=== PATIENT | female | born 1990 | race Caucasian/White ===

== ENCOUNTER 2023-06-14 17:18 | Emergency (ER) | payer MEDICAID, SELFPAY ==
[2023-06-14 17:22] VITALS: BP 118/79; PULSE 96; RESP 12; TEMP 36.8; O2SAT 99; BMI 22.6
--- NOTE | 2023-06-14 17:25 | W.ED.URI ---
HPI - URI/Sore Throat General: Chief Complaint: General Medical Stated Complaint: rigth side facial pains Time Seen by Provider: 06/14/23 17:23 History of Present Illness: 32-year-old female comes in today with right side jaw pain. Patient appears nontoxic. Patient does have very poor dentition and reports pain starting approximately 2 days ago. Patient has been told by her dentist that she needs to have her teeth removed. Patient denies any other complaints. Review of Systems ENMT: Reports: mouth pain and dental pain Physical Exam Const: COMMON NORMALS: alert HENMT: COMMON NORMALS: normocephalic HEAD & SCALP: normocephalic TEETH & GINGIVA: Yes poor dentition Neck/C-Spine: COMMON NORMALS: full ROM Resp: COMMON NORMALS: normal respiratory effort Cardio: COMMON NORMALS: regular rate RATE: regular rate GI: COMMON NORMALS: non-tender Back/Pelvis: COMMON NORMALS: thoracic and lumbar spine normal to inspection Extremity: COMMON NORMALS: full ROM Neuro: SENSORIUM/ORIENTATION: Yes alert Skin: COMMON NORMALS: turgor normal GENERAL SKIN EXAM: turgor normal Course Vital Signs: Vital signs: Vital Signs Temperature 98.2 F 06/14/23 17:22 Pulse Rate 96 06/14/23 17:22 Respiratory Rate 12 06/14/23 17:22 Blood Pressure 118/79 06/14/23 17:22 Pulse Oximetry 99 06/14/23 17:22 Oxygen Delivery Me thod Room Air 06/14/23 17:22 MDM - URI/Sore Throat Medical Decision Making 32-year-old female comes in with jaw pain. On exam patient has poor dentition with multiple caries and teeth. No significant swelling or redness is noted to the face. Posterior pharynx is normal. Vital signs are normal. Differential diagnosis includes not limited to dental pain, dental abscess, dental caries, TMJ syndrome, trigeminal neuralgia. No signs of severe illness or injury is noted. Due to patient's poor dentition suspect a early dental infection. Patient will be placed on Augmentin and recommended use acetaminophen and ibuprofen for pain and hydrocodone for severe pain. Patient reported understanding and agreed to plan. No radiology studies performed this visit Discharge Plan Discharge Patient Disposition: Home Clinical Impression: Pain, dental Condition: Stable Prescriptions: New amoxicillin-pot clavulanate 875-125 mg tablet 1 tab PO BID Qty: 14 0RF hydrocodone-acetaminophen 5-325 mg tablet 1 tab PO Q8H PRN (Reason: pain (scale score 7-10)) Qty: 6 0RF Discharge Orders: Discharge ED (Routine); Ordered 06/14/23 Ordered By: Kimani Ross Discharge Diet: Usual diet Discharge Activity: Increase activity as tolerated Patient Instructions: Toothache (ED) Activity Restrictions/Additional Instructions: Take antibiotics as directed. Drink plenty of water and fluids. Follow-up with dentist for further evaluation. Return to ED for new concerns or worsening symptoms. Coding Level of Care Code ED Tip Length Checker for Iban Munoz
[2023-06-14] MEDS: dexamethasone 4 mg Tablet 10 MG PO (17:52)
[2023-06-14] MEDS: HYDROcodone-acetaminophen 5-325 mg Tablet 1 TAB PO (17:52)
[2023-06-14] MEDS: amoxicillin-clav 875-125 mg Tablet 1 TAB PO (17:52)
[2023-06-14 17:55] VITALS: BP 118/79; PULSE 96; RESP 12; TEMP 36.8; O2SAT 99
== END 2023-06-14 17:56 | disposition home or self-care (01) ==
PROVIDERS: Emergency Provider Nurse Practitioner Family
DX: K08.89 Other specified disorders of teeth and supporting structures (principal)
CPT/HCPCS: 99283; J8540

== ENCOUNTER → 2023-08-27 10:46 | Outpatient (BNVA) | payer MEDICAID, SELFPAY | PROVIDERS: Visit Provider Nurse Practitioner Family | DX: J06.9 Acute upper respiratory infection, unspecified (principal) | CPT/HCPCS: 80053; 85025 ==

== ENCOUNTER 2023-10-27 20:46 | Emergency (ER) | payer MEDICAID, SELFPAY ==
[2023-10-27 20:50] VITALS: BP 101/67; PULSE 89; RESP 16; TEMP 36.7; O2SAT 98; BMI 23.8
[2023-10-27 21:19] LABS: Charge for UA Resulting for Rev
[2023-10-27 21:34] LABS: Bilirubin Urine Negative (Negative); Blood Urine Negative (Negative); Glucose Urine UA Negative (Normal); Ketones Urine Negative (Negative); Leukocyte Esterase Urine Negative (Negative); Nitrate Urine Negative (Negative); Protein Urine Negative (Negative); Specific Gravity, Urine 1.021 (1.005-1.030); Urine Appearance Clear (CLEAR); Urine Color Yellow (Yellow); pH Urine 5.5 (5-7)
[2023-10-27 21:36] LABS: HCG Qualitative Urine. Negative (Negative)
[2023-10-27 21:39] LABS: Basophils % 0.3 %; Eosinophils # 0.1 10^3/uL (0.0-0.8); Eosinophils % 1.2 %; Hematocrit 39.3 % (36-47); Lymphocytes # 2.9 10^3/uL (0.8-4.8); Mean Corpuscular HGB Conc 33.8 g/dL (30-55); Mean Corpuscular Volume 94.7 fl (85-98); Mean Platelet Volume 10.4 fL (7.4-10.4); Monocytes # 0.7 10^3/uL (0.2-0.9); Monocytes % 6.9 %; Neutrophils # 6.31 10^3/uL (1.8-7.7); Neutrophils % 62.2 %; Nucleated Red Blood Cells % 0 %; Platelet Count 294 10^3/cmm (157-399); Red Blood Count 4.15 10^6/uL (3.85-5.65); Red Cell Distribution Width 12.3 % (12.1-15.1); White Blood Count 10.14 10^3/uL (3.29-11.43)
--- NOTE | 2023-10-27 21:41 | USR_ITS ---
PROCEDURE INFORMATION: Exam: US Pelvis, Complete, Non-Obstetric Exam date and time: 10/27/2023 9:48 PM Age: 33 years old Clinical indication: Pelvic pain; Patient HX: Poly menorrhea, last two menstrual cycles. ; Additional info: Heavy, irregular bleeding, hcg neg TECHNIQUE: Imaging protocol: Transabdominal pelvic nonobstetric ultrasound. Complete exam. Real time ultrasound with image documentation. COMPARISON: No relevant prior studies available. FINDINGS: Uterus: Uterus is normal. Endometrial stripe is normal. Retroflexed. Right ovary/adnexa: Ovary is normal. No mass. Normal blood flow. Left ovary/adnexa: Ovary is normal. No mass. Normal blood flow. Intraperitoneal space: Small amount of fluid adjacent to the right ovary and within the cul-de-sac. Urinary bladder: Not attempted. US/US pelv w/transvag [id number] IMPRESSION: No acute findings. Vascular flow to the ovaries is maintained.
[2023-10-27 21:48] LABS: Alanine Aminotransferase 9 U/L (0-33); Albumin Level 4.4 g/dL (3.5-5.2); Alkaline Phosphatase 64 U/L (35-105); Aspartate Amino Transferase 13 U/L (0-32); Blood Urea Nitrogen 9 mg/dL (6-20); Calcium 9.5 mg/dL (8.5-10.5); Carbon Dioxide 24 mmol/L (22-29); Chloride 103 mmol/L (98-107); Creatinine Clr Calc Pharmacy 109.5251; Globulin 2.9 g/dL (1.3-4.6); Glomerular Filtration Rate 115.9 mL/min (90-130); Glucose 100 mg/dL (65-115); Lipase 25 U/L (13-60); Osmolality Calculated 287 mOsm/kg (285-295); Sodium 139 mmol/L (136-145); Total Bilirubin 0.2 mg/dL (0.15-1.2); Total Protein 7.3 g/dL (6.6-8.7)
--- NOTE | 2023-10-27 21:49 | ED_ITS ---
HPI - Abdominal Pain 2 General: Chief Complaint: Abdominal Pain Stated Complaint: Abd pain Time Seen by Provider: 10/27/23 21:09 Source: patient Mode of arrival: ambulatory Limitations: no limitations History of Present Illness: Patient presents emergency department today accompanied by his significant other for evaluation treatment of low abdominal cramping and abnormal vaginal bleeding. Patient reports 6 years ago she had a tubal but, only couple of years ago had an ectopic . Patient states that she typically has very regular, 3-day menstrual cycles. They can often be heavy but states that this past month, had 2 menstrual cycles within a couple weeks of each other. She stopped bleeding from her second cycle yesterday but still complains of lower abdominal cramping radiating into her back. She informed the nurse that she has a history of endometriosis and ovarian cyst but has not dealt with those issues in quite some time. She states she does not take any form of control or hormones. She has an appointment with her doctor next week but was concerned and wanted to be seen today. She has felt a little nauseated but has not vomited. No syncope. Review of Systems 2 General: Reports: 10 or more systems reviewed and unremarkable except in HPI and below Physical Exam 2 Const: COMMON NORMALS: no acute distress, patient oriented x3 and alert HENMT: COMMON NORMALS: normocephalic, atraumatic, hearing grossly normal bilaterally and moist oral mucous membranes HEAD & SCALP: normocephalic and atraumatic Eye: COMMON NORMALS: Equal, round and reactive pupils present, EOMs intact bilaterally and conjunctivae normal CONJUNCTIVA: Yes conjunctivae normal P UPIL: Yes Equal, round and reactive pupils present Neck/C-Spine: COMMON NORMALS: full ROM and no JVD Lymph: LYMPHATIC: no lymphadenopathy noted Resp: COMMON NORMALS: normal respiratory effort, No retractions, No use of accessory muscles and clear to auscultation bilaterally AUSCULTATION: clear to auscultation bilaterally Cardio: COMMON NORMALS: no JVD, regular rate and regular rhythm RATE: r egular rate RHYTHM: regular rhythm GI: OTHER: Generalized low abdominal pain. Abdomen soft. : COMMON NORMALS: Yes no CVA tenderness BLADDER/KIDNEY EXAM: Yes no CVA tenderness Back/Pelvis: COMMON NORMALS: no CVA tenderness, no thoracic nor lumbar tenderness and thoraco-lumbar ROM normal Extremity: COMMON NORMALS: normal to inspection, full ROM and capillary refill normal Neuro: COMMON NORMALS: patient oriented x3 SENSORIUM/ORIENTATION: Yes alert Psych: COMMON NORMALS: mental status grossly normal, Normal thought process present, cooperative, normal affect and activity/motor behavior normal T HOUGHT PROCESS: Normal thought process present Skin: COMMON NORMALS: no rashes or lesions noted and no wounds GENERAL SKIN EXAM: no rashes or lesions noted Course 2 Vital Signs: Vital signs: Vital Signs Temperature 98.0 F 10/27/23 20:50 Pulse Rate 89 10/27/23 20:50 Respiratory Rate 16 10/27/23 20:50 Blood Pressure 101/67 10/27/23 20:50 Pulse Oximetry 98 10/27/23 20:50 Oxygen Delivery Me thod Room Air 10/27/23 20:50 MDM - Abdominal Pain Medical Decision Making Patient's labs today are unremarkable. Urinalysis shows no acute concerns. Urine test is negative. Ultrasound shows no signs of leiomyoma, fibroid, thickened endometrial stripe, PCOS, or torsion. Discussed this with the patient. With these abnormalities ruled out, it is then more likely that these abnormal cycles are related to hormones. She has an upcoming appointment in 1 week with her doctor. Encouraged her to discuss options for hormonal regulation. Patient is not currently bleeding at this time and H&H is stable. No pharmaceutical intervention is necessary at this time. Patient verbalizes understanding and agreement to treatment plan. Differential Diagnosis Likely abdominal pain; Unlikely acute appendicitis, calculus of kidney, diverticulitis, endometriosis, gastroenteritis or small bowel obstruction Lab Data 10/27/23 21:27 10/27/23 21:27 Labs/Radiology: Radiology Impressions Pelvic/Transvag US 10/27/23 21:41 IMPRESSION: No acute findings. Vascular flow to the ovaries is maintained. Laboratory Results WBC 10.14 10^3/uL (3.29-11.43) 10/27/23 21:27 RBC 4.15 10^6/uL (3.85-5.65) 10/27/23 21:27 Hgb 13.30 g/dL (11.27-16.99) 10/27/23 21:27 Hct 39.3 % (36-47) 10/27/23 21:27 MCV 94.7 fl (85-98) 10/27/23 21:27 MCH 32.0 pg (27-33) 10/27/23 21: MCHC 33.8 g/dL (30-55) 10/27/23 21: RDW 12.3 % (12.1-15.1) 10/27/23 21:27 Plt Count 294 10^3/cmm (157-399) 10/27/23 21: MPV 10.4 fL (7.4-10.4) 10/27/23 21:27 Neut % (Auto) 62.2 % 10/27/23 21:27 Lymph % (Auto) 29.0 % 10/27/23 21:27 Merrick % (Auto) 6.9 % 10/27/23 21: Eos % (Auto) 1.2 % 10/27/23 21: Baso % (Auto) 0.3 % 10/27/23 21: Neut # (Auto) 6.31 10^3/uL (1.8-7.7) 10/27/23 21:27 Lymph # (Auto) 2.9 10^3/uL (0.8-4.8) 10/27/23 21: Merrick # (Auto) 0.7 10^3/uL (0.2-0.9) 10/27/23 21:27 Eos # (Auto) 0.1 10^3/uL (0.0-0.8) 10/27/23 21: Baso # (Auto) 0.0 10^3/uL (0.0-0.1) 10/27/23 21: Nucleated RBC % (auto) 0 % 10/27/23 21: Nucleated RBCs # 0.0 /100WBC 10/27/23 21: Sodium 139 mmol/L (136-145) 10/27/23 21: Potassium 4.0 mmol/L (3.5-5.1) 10/27/23 21: Chloride 103 mmol/L (98-107) 10/27/23 21: Carbon Dioxide 24 mmol/L (22-29) 10/27/23 21: Anion Gap 16.0 (5-19) 10/27/23 21:27 BUN 9 mg/dL (6-20) 10/27/23 21: Creatinine 0.6 mg/dL (0.5-0.9) 10/27/23 21:27 GFR Calculation 115.9 mL/min (90-130) 10/27/23 21:27 Glucose 100 mg/dL (65-115) 10/27/23 21:27 Calculated Osmolality 287 mOsm/kg (285-295) 10/27/23 21:27 Calcium 9.5 mg/dL (8.5-10.5) 10/27/23 21:27 Total Bilirubin 0.2 mg/dL (0.15-1.2) 10/27/23 21:27 AST 13 U/L (0-32) 10/27/23 21:27 ALT 9 U/L (0-33) 10/27/23 21: Alkaline Phosphatase 64 U/L (35-105) 10/27/23 21:27 Total Protein 7.3 g/dL (6.6-8.7) 10/27/23 21:27 Albumin 4.4 g/dL (3.5-5.2) 10/27/23 21: Globulin 2.9 g/dL (1.3-4.6) 10/27/23 21:27 Lipase 25 U/L (13-60) 10/27/23 21:27 HCG, Qual Negative (Negative) 10/27/23 21:09 Urine Color Yellow (Yellow) 10/27/23 21:09 Urine Appearance Clear (CLEAR) 10/27/23 21:09 Urine pH 5.5 (5-7) 10/27/23 21:09 Ur Specific [place] 1.021 (1.005-1.030) 10/27/23 21:09 Urine Protein Negative (Negative) 10/27/23 21:09 Urine Glucose (UA) Negative (Normal) 10/27/23 21:09 Urine Ketones Negative (Negative) 10/27/23 21:09 Urine Blood Negative (Negative) 10/27/23 21:09 Urine Nitrate Negative (Negative) 10/27/23 21:09 Urine Bilirubin Negative (Negative) 10/27/23 21:09 Urine Urobilinogen 1.0 mg/dL (Negative) 10/27/23 21:09 Ur Leukocyte Esterase Negative (Negative) 10/27/23 21:09 Amorphous Sediment Not Reportable 10/27/23 21:09 All radiology interpretation(s) finalized by discharge Discharge Plan Discharge Patient Disposition: Home Clinical Impression: Excessive menstruation with irregular cycle Condition: Stable Prescriptions: No Action amoxicillin 875 mg tablet 875 mg PO BID 10 Days Qty: 20 0RF albuterol sulfate [Ventolin HFA] 90 mcg/actuation HFA aerosol inhaler 2 puff inhalation 6XD PRN (Reason: shortness of breath or wheezing) Qty: 8.5 11RF benzonatate 100 mg capsule 100 mg PO TID PRN (Reason: cough) Qty: 90 0RF Discharge Orders: Discharge ED (Routine); Ordered 10/27/23 Ordered By: Tamara Manzano Referrals: Farida Barros NP [Primary Care Provider] - Discharge Diet: Usual diet Discharge Activity: Increase activity as tolerated Patient Instructions: Menorrhagia (ED) Activity Restrictions/Additional Instructions: Labs today show no acute concerns. With your back to back menstrual cycles-both of increased heavy bleeding, and experiencing some concerns for blood loss but, blood counts today are normal. Imaging shows no signs of fibroids, abnormally thickened endometrium, ovarian cyst, or torsion concerns. These will be ruled out, you most likely are dealing more with hormonal issues and would recommend you speak with your doctor next week about options for hormone regulation to hopefully prevent developing irregular cycles or overly heavy cycles. However, if you begin having return of vaginal bleeding where you are passing large clots, or saturating feminine pads every hour, or passout you need to return to the ER. Coding Level of Care Code ED Supervisor Decorating for Iban Munoz
[2023-10-27 23:57] VITALS: BP 101/67; PULSE 89; RESP 16; TEMP 36.7; O2SAT 98
== END 2023-10-27 23:57 | disposition home or self-care (01) ==
PROVIDERS: Emergency Medicine; Emergency Provider Physician Assistant; PCP Nurse Practitioner Family
DX: N92.1 Excessive and frequent menstruation with irregular cycle (principal)
CPT/HCPCS: 76830; 76856; 80053; 81003; 81015; 81025; 83690; 85025; 99284

== ENCOUNTER 2023-12-03 17:51 | Emergency (ER) | payer SELFPAY ==
[2023-12-03 18:05] VITALS: BP 121/74; PULSE 88; RESP 14; TEMP 36.8; O2SAT 98; BMI 24.2
--- NOTE | 2023-12-03 18:15 | ED_ITS ---
HPI - Headache General: Chief Complaint: Headache Stated Complaint: fatigue/left arm pain/headache Time Seen by Provider: 12/03/23 18:05 Source: patient Mode of arrival: ambulatory Limitations: no limitations History of Present Illness: 33-year-old female states that she has h ad a migraine headache today. States she has had a history of migraine headaches this feels the same began gradually her headaches currently a 6 out of 10 has some photophobia and phonophobia states she had some numbness in her left arm she states that since resolved denies any weakness denies any fever Associated symptoms: Deny chest pain, fever(s), nausea, rash or vomiting Related Data Previous Rx's Medication Instructions Recorded albuterol sulfate 90 mcg/actuation 2 puff inhalation 6XD PRN 08/27/23 aerosol inhaler (Ventolin HFA) shortness of breath or wheezing #8.5 grams cephalexin 500 mg capsule 500 mg PO TID 7 days #21 caps 11/03/23 Allergies Allergy/AdvReac Type Severity Reaction Status Date / Time oxycodone Allergy ADR-Itching Verified 12/03/23 18:10 tramadol Allergy ALGY-Hives Verified 12/03/23 18:10 Review of Systems Const: Denies: fever(s), chills, body aches or change in appetite Eyes: Denies: blurry vision or eye discomfort ENMT: Denies: throat pain or dental pain Card: Denies: chest pain Resp: Denies: dyspnea GI: Denies: abdominal pain, nausea, vomiting or diarrhea Musc: Denies: neck pain or back pain Skin/Breast: Denies: rash Neuro: Reports: headache(s) and numbness in extremities [facility] ED PFSH: Social History Smoking and tobacco/nicotine status: current every day tobacco/nicotine user Female Reproductive History: Date of last menstrual period: 12/03/23 Physical Exam Const: COMMON NORMALS: no acute distress, patient oriented x3 and healthy appearing HENMT: COMMON NORMALS: normocephalic and atraumatic HEAD & SCALP: normocephalic and atraumatic Eye: COMMON NORMALS: Equal, round and reactive pupils present and EOMs intact bilaterally PUPIL: Yes Equal, round and reactive pupils present Neck/C-Spine: COMMON NORMALS: full ROM and supple Chest: COMMONS NORMALS: normal inspection of the chest Resp: COMMON NORMALS: normal respiratory effort Cardio: COMMON NORMALS: regular rate RATE: regular rate Extremity: COMMON NORMALS: normal to inspection and full ROM Neuro: COMMON NORMALS: patient oriented x3, moves all extremities and no focal motor deficits Psych: COMMON NORMALS: mental status grossly normal, Normal thought process present and cooperative THOUGHT PROCESS: Normal thought process present Skin: COMMON NORMALS: no rashes or lesions noted and no wounds GENERAL SKIN EXAM: no rashes or lesions noted Course Vital Signs: Vital signs: Vital Signs Temperature 98.3 F 12/03/23 18:05 Pulse Rate 97 12/03/23 18:55 Respiratory Rate 14 12/03/23 18:05 Blood Pressure 106/59 12/03/23 18:55 Pulse Oximetry 100 12/03/23 18:55 Oxygen Delivery Me thod Room Air 12/03/23 18:55 MDM - Headache Medical Decision Making Patient presents here with a headaches likely migraine headache she feels much improved here she has no signs of meningitis or subarachnoid hemorrhage she stable for discharge follow-up with PCP return if worsening. Medical Records I reviewed the patient's medical records. No radiology studies performed this visit Discharge Plan Discharge Patient Disposition: Home Clinical Impression: Headache Condition: Stable Prescriptions: No Action albuterol sulfate [Ventolin HFA] 90 mcg/actuation HFA aerosol inhaler 2 puff inhalation 6XD PRN (Reason: shortness of breath or wheezing) Qty: 8.5 11RF cephalexin 500 mg capsule 500 mg PO TID 7 Days Qty: 21 0RF Discharge Orders: Discharge ED (Routine); Ordered 12/03/23 Ordered By: Nitesh Xie Referrals: Farida Barros NP [Primary Care Provider] - 4-7 days Discharge Diet: Advance as tolerated Discharge Activity: Resume usual activity Patient Instructions: General Headache (ED) Coding Level of Care Code ED Director Of Gift Planning for Iban Munoz
[2023-12-03] MEDS: ketorolac 30 mg/mL INJ 15 MG IVP (18:48)
[2023-12-03] MEDS: diphenhydrAMINE 50 mg/mL SDV 1mL IVP (18:50)
[2023-12-03] MEDS: metoclopramide 5 mg/mL SDV 2 mL 10 MG IVP (18:53)
[2023-12-03 18:55] VITALS: BP 106/59; PULSE 97; O2SAT 100
[2023-12-03 20:02] VITALS: BP 95/69; PULSE 81; O2SAT 98
== END 2023-12-03 20:03 | disposition home or self-care (01) ==
PROVIDERS: Emergency Provider Emergency Medicine; PCP Nurse Practitioner Family
DX: R51.9 Headache, unspecified (principal); Z72.0 Tobacco use
CPT/HCPCS: 96374; 96375; 99284; J1200; J1885; J2765

== ENCOUNTER → 2023-12-16 10:24 | Outpatient (BNVA) | payer MEDICAID, SELFPAY | PROVIDERS: PCP Nurse Practitioner Family; Visit Provider Nurse Practitioner Women's Health | DX: N93.9 Abnormal uterine and vaginal bleeding, unspecified (principal) | CPT/HCPCS: 82670; 83001; 83002; 83036; 84146; 84402; 84403; 84443 ==

== ENCOUNTER 2024-04-28 19:09 | Emergency (ER) | payer MEDICAID, SELFPAY ==
[2024-04-28 19:18] VITALS: BP 103/72; PULSE 103; RESP 16; TEMP 36.6; O2SAT 98; BMI 25.4
--- NOTE | 2024-04-28 20:16 | CTR_ITS ---
PROCEDURE INFORMATION: Exam: CT Maxillofacial Without Contrast; Mandible Exam date and time: 04/28/2024 8:38 PM Age: 33 years old Clinical indication: Jaw pain; Additional info: Left sided jaw pain TECHNIQUE: Imaging protocol: Computed tomography maxillofacial without contrast. Exam focused on the mandible. Radiation optimization: All CT scans at this facility use at least one of these dose optimization techniques: automated exposure control; mA and/or kV adjustment per patient size (includes targeted exams where dose is matched to clinical indication); or iterative reconstruction. COMPARISON: No relevant prior studies available. RADIATION DOSE METRICS: Total DLP (mGy-cm): 466.88 FINDINGS: Bones: Mandible is unremarkable. No acute fracture. Soft tissues: Unremarkable. CT/CT facial bones wo con* [id number] IMPRESSION: No acute bony abnormality. If symptoms persist, consider further evaluation with MRI, if there are no contraindications to obtaining a MRI scan.
[2024-04-28 20:54] VITALS: RESP 16
[2024-04-28] MEDS: morphine 4 mg/mL SDV 1 mL IM (20:54)
--- NOTE | 2024-04-28 21:26 | W.ED.HA ---
HPI - Headache General: Chief Complaint: Headache Stated Complaint: left side face jaw pain Time Seen by Provider: 04/28/24 19:25 Source: patient Mode of arrival: ambulatory Limitations: no limitations History of Present Illness: Patient is a 33-year-old female presents the emergency department complaining of left jaw pain for the past couple days. Orts history of dental abscess and prior dental history, she notes that she was told by the dentist in the past that she has degenerative bone disease. She states that this is reportedly a flareup, she has tried numerous [id number]-sli-aottobf medications and is concerned that she is taking too many pills. She reports no relief from these medications. She denies any trouble swallowing, painful swallowing, difficulty handling secretions, fever, or other symptoms. Denies history of migraines. MD elicited complaint: other (Left facial pain) Onset (ago): day(s) (2) Onset description: gradually Location: left and facial Severity: severe Exacerbating factors: movement of head/neck Associated symptoms: Deny chest pain, fever(s), lightheadedness, nausea, rash or vomiting Related Data Previous Rx's ?Medication ?Instructions ?Recorded norethindrone 1 mg-ethinyl 1 tab PO DAILY #28 tabs 12/16/23 estradiol 35 mcg tablet ondansetron HCl 8 mg tablet 8 mg PO Q8H PRN nausea and 02/11/24 vomiting #10 tabs Allergies Allergy/AdvReac Type Severity Reaction Status Date / Time oxycodone Allergy ADR-Itching Verified 02/11/24 13:39 tramadol Allergy ALGY-Hives Verified 02/11/24 13:39 Review of Systems General: Reports: 10 or more systems reviewed and unremarkable except in HPI and below Const: Denies: fever(s), chills or fatigue Eyes: Denies: change in vision ENMT: Reports: sinus pain (Left); Denies: throat pain, ear or mastoid pain or nasal discharge Card: Denies: chest pain, palpitations, swelling of feet/ankles or lightheadedness Resp: Denies: dyspnea, productive cough or wheezing GI: Denies: abdominal pain, nausea, vomiting, diarrhea or constipation : Denies: flank pain, difficulty voiding, dysuria or urinary frequency Musc: Denies: neck pain, back pain or joint pain Skin/Breast: Denies: rash Neuro: Denies: headache(s), numbness in extremities or weakness in extremities PFSH ED PFSH: Family History Mother Ovarian cancer Social History Smoking and tobacco/nicotine status: current every day tobacco/nicotine user Course Vital Signs: Vital signs: Vital Signs Temperature 97.9 F 04/28/24 19:18 Pulse Rate 103 H 04/28/24 19:18 Respiratory Rate 16 04/28/24 20:54 Blood Pressure 103/72 04/28/24 19:18 Pulse Oximetry 98 04/28/24 19:18 Oxygen Delivery Me thod Room Air 04/28/24 19:18 MDM - Headache Medical Decision Making Patient complaining of severe left facial pain, has a dental history. Physical exam ultimately unremarkable there was no intraoral findings or posterior oropharyngeal findings. She had 1 imaging of her face, this was negative. This could be dental in origin, though she was noted to be comfortable appearing and nontoxic throughout ED stay. Informed her to safely take pain medications at home and to follow-up with a dentist. Return precautions given. She verbalized understanding. Lab Data Radiology Impressions Face CT 04/28/24 20:16 IMPRESSION: No acute bony abnormality. If symptoms persist, consider further evaluation with MRI, if there are no contraindications to obtaining a MRI scan. All radiology interpretation(s) finalized by discharge Discharge Plan Discharge Patient Disposition: Home Clinical Impression: Pain, dental Condition: Stable Prescriptions: No Action ondansetron HCl 8 mg tablet 8 mg PO Q8H PRN (Reason: nausea and vomiting) Qty: 10 0RF norethindrone-ethin estradiol 1-35 mg-mcg tablet 1 tab PO DAILY Qty: 28 0RF Rx Instructions: take 5 tabs on day 1, 4 tabs on day 2, 3 tabs on day 3, 2 tabs on day 4, and 1 tab on day 5 Discharge Orders: Discharge ED (Routine); Ordered 04/28/24 Ordered By: Omega Rea Activity Restrictions/Additional Instructions: Please follow-up with dentist. Ibuprofen and Tylenol at home for pain. Return with any new or worsening. Print Language: [place] Coding Level of Care Code ED Automatic Car Wash Attendant for Iban Munoz
[2024-04-28 21:31] VITALS: BP 127/85; PULSE 88; RESP 16; O2SAT 98
== END 2024-04-28 21:30 | disposition home or self-care (01) ==
PROVIDERS: Emergency Provider Physician Assistant
DX: K08.89 Other specified disorders of teeth and supporting structures (principal); Z72.0 Tobacco use
CPT/HCPCS: 70486; 96372; 99284; J2270